=== PATIENT | male | born 1955 | race Caucasian/White ===

== ENCOUNTER 2019-10-11 05:51 | Outpatient (CLI) | payer MEDICARE, OTHER, SELFPAY ==
[2019-10-11 16:38] LABS: SARS-CoV-2 RNA PCR Negative
== END 2019-10-11 05:52 | disposition home or self-care (01) ==
LOC: ANHCOVIDDT 05:53
PROVIDERS: PCP Emergency Medicine; Visit Provider Internal Medicine Gastroenterology
DX: Z01.818 Encounter for other preprocedural examination (principal); Z11.59 Encounter for screening for other viral diseases; Z86.010 Personal history of colon polyps
CPT/HCPCS: 87635; C9803; U0003

== ENCOUNTER 2019-10-13 00:38 | Day surgery (SDC) | payer MEDICARE, OTHER, SELFPAY ==
[2019-10-09 13:53] VITALS: BMI 23.9
[2019-10-13 07:36] VITALS: BP 105/51; PULSE 65; RESP 20; TEMP 36.7; O2SAT 96
[2019-10-13] MEDS: LACTATED RINGERS 1,000 ML 150 ML IV CONT (07:59)
--- NOTE | 2019-10-13 08:06 | WPDANESEPPF ---
Anes - Initial Pre Proc Eval Procedure: Operation Date: 10/13/19 09:00 Proposed Procedures p Colonoscopy - Johnathan Nichols MD Date/Time: 10/13/19 08:06 Surgeon: Johnathan Nichols MD Pre Op Diagnosis: personal hx of colon polyps Patient Data Age: 63 Gender: M Height: 6 ft Weight: 83 kg Last Vital Signs Temp 36.7 C 10/13/19 07:36 Pulse 65 10/13/19 07:36 Resp 20 10/13/19 07:36 BP 105/51 L 10/13/19 07:36 Pulse Ox 96 10/13/19 07:36 Allergies Allergy/AdvReac Type Severity Reaction Status Date / Time Sulfa (Sulfonamide Allergy Severe throat Verified 10/13/19 07:46 Antibiotics) swelling Home Medications Medication Instructions Recorded Confirmed Type allopurinol 100 mg PO DAILY 10/09/19 10/13/19 History aspirin [Aspirin Low Dose] 81 mg PO DAILY 10/09/19 10/13/19 History atorvastatin 40 mg PO DAILY 10/09/19 10/13/19 History famotidine 20 mg PO DAILY 10/09/19 10/13/19 History levothyroxine 50 mcg PO DAILY 10/09/19 10/13/19 History lisinopril 5 mg PO DAILY 10/09/19 10/13/19 History metoprolol succinate 25 mg PO DAILY 10/09/19 10/13/19 History multivitamin [Multiple Vitamins] 1 tablet PO DAILY 10/09/19 10/13/19 History omega 4-[id number]-cba-fish oil [Fish Oil] 1 cap PO DAILY 10/09/19 10/13/19 History Patient hx anesthesia problems: none Family hx anesthesia problems: none Anes - Eval Final PreProcedure Day of Procedure 10/13/19 08:06 Patient weight: normal Heart: regular rate and rhythm Lungs: clear to auscultation Airway: Mallampati scale class II Neurological: alert and oriented Last oral intake: >/= 8 hours ASA classification: III Emergent: no Anesthesia type and monitoring: general GIVS and standard monitoring Informed Consent: The patient's anesthetic plan and its attendant risks and benefits were discussed with the patient/family/POA. Questions were solicited and answers provided to the satisfaction of the patient/family/POA.
--- NOTE | 2019-10-13 08:25 | P.HP_ITS ---
History of Present Illness History of Present Illness Consent: Risks, benefits, and alternatives have been discussed and questions answered. Patient agrees to proceed with procedure. Chief complaint: personal hx of colon polyps Narrative: Fahad Bosch is a 63 year old male with a history of polyps. Meds Home Medications and Allergies Home Medications Medication Instructions Recorded Confirmed Type allopurinol 100 mg PO DAILY 10/09/19 10/13/19 History aspirin [Aspirin Low Dose] 81 mg PO DAILY 10/09/19 10/13/19 History atorvastatin 40 mg PO DAILY 10/09/19 10/13/19 History famotidine 20 mg PO DAILY 10/09/19 10/13/19 History levothyroxine 50 mcg PO DAILY 10/09/19 10/13/19 History lisinopril 5 mg PO DAILY 10/09/19 10/13/19 History metoprolol succinate 25 mg PO DAILY 10/09/19 10/13/19 History multivitamin [Multiple Vitamins] 1 tablet PO DAILY 10/09/19 10/13/19 History omega 8-xkl-hgs-fish oil [Fish Oil] 1 cap PO DAILY 10/09/19 10/13/19 History Allergies Allergy/AdvReac Type Severity Reaction Status Date / Time Sulfa (Sulfonamide Allergy Severe throat Verified 10/13/19 07:46 Antibiotics) swelling Vital Signs Vital Signs - 24 hr 10/13/19 07:36 Temperature 36.7 C Pulse Rate 65 Respiratory Rate 20 Blood Pressure 105/51 L Pulse Oximetry 96 Exam Resp: Auscultation: clear to auscultation bilaterally Cardio: Rate: regular rate Rhythm: regular rhythm GI: GI Palp: Yes Soft to palpation and No Tenderness to palpation present (GI) Assessment and Plan Assessment and plan (1) Personal history of colonic polyps: Code(s): Z86.010 - Personal history of colonic polyps Status: Acute Assessment and Plan: Colonoscopy with possible biopsy or polypectomy or cautery or injection of substances.Colonoscopy with possible biopsy or polypectomy or cautery or i njection of substances.
[2019-10-13 09:20] VITALS: BP 88/52; PULSE 64; RESP 14; O2SAT 96
[2019-10-13 09:30] VITALS: BP 90/58; PULSE 59; RESP 14; O2SAT 100
[2019-10-13 09:40] VITALS: BP 101/65; PULSE 63; RESP 15; O2SAT 100
== END 2019-10-13 10:00 | disposition home or self-care (01) ==
PROVIDERS: PCP Emergency Medicine; Visit Provider Internal Medicine Gastroenterology
PROC: 0DJD8ZZ Inspection of Lower Intestinal Tract, Via Natural or Artificial Opening Endoscopic (ICD-10-PCS; CPT 45378; principal; 2019-10-13 09:00)
DX: Z12.11 Encounter for screening for malignant neoplasm of colon (principal); Z86.010 Personal history of colon polyps; Z79.82 Long term (current) use of aspirin
CPT/HCPCS: G0105; J2704; J7120